=== PATIENT | female | born 1950 | race Caucasian/White ===

== ENCOUNTER 2019-05-03 06:55 | Outpatient (CLI) | payer MEDICARE, SELFPAY ==
--- NOTE | ~2019-05-03 | XR_ITS ---
EXAMINATION: XR abdomen/kub 1V DATE: 05/03/2019 07:21 INDICATION: Left ureteral stone. TECHNIQUE: A supine view of the abdomen on 2 radiographs was obtained. COMPARISON: CT abdomen and pelvis 04/08/2019 FINDINGS: There are no dilated loops of bowel. There is a left internal ureteral stent in expected po sition. A 5 mm calcification overlies left kidney upper pole. A vascular calcification overlies the s acrum on the left. There are phleboliths in the right pelvis. There is a total left hip arthroplasty in near-anatomic alignment. IMPRESSION: 1. 5 mm calcification overlying left kidney upper pole that may be a stone. 2. Left internal ureteral stent in expected position. Reviewed, dictated and finalized at location A. T TELLER
== END 2019-05-03 06:56 | disposition home or self-care (01) ==
PROVIDERS: Visit Provider Urology
DX: N20.1 Calculus of ureter (principal); N28.89 Other specified disorders of kidney and ureter
CPT/HCPCS: 74018

== ENCOUNTER 2019-05-13 13:35 | Outpatient (CLI) | payer MEDICARE, SELFPAY ==
--- NOTE | ~2019-05-13 | CT_ITS ---
EXAMINATION: CT abdomen pelvis wo con DATE: 05/13/2019 14:11 INDICATION: Left ureteral stone, left flank pain TECHNIQUE: Computed tomography (CT) of the abdomen and pelvis was performed without intravenous contr ast. The dose-length product (DLP) was 242.51 mGy-cm. Automated exposure control and iterative recons truction technique were employed. COMPARISON: 04/08/2019 FINDINGS: There is moderate emphysema of the visualized lung bases. The heart size is normal. Stable nodules of the left lower lobe measure up to 5 mm. The liver, spleen, pancreas, gallbladder, and adre nal glands are normal. The right kidney is unremarkable. A left internal ureteral stent has been plac ed in expected position. Tiny stone fragments are noted in the lower pole of the left kidney. No defi nite stone fragments are seen along the left internal ureteral stent. There is mild persistent hydrou reteronephrosis. There is no free intraperitoneal gas or evidence of bowel obstruction. No pathologic ally enlarged abdominal or pelvic lymph nodes are identified. There is calcified atherosclerosis of t he aorta and many of the other arteries. Colonic diverticulosis is present without evidence of divert iculitis. There is moderate lumbar spondylosis. IMPRESSION: 1. Interval placement of a left internal ureteral stent in expected position and lithotripsy with tin y stone fragments in the lower pole of the left kidney. No stone fragments identified along the cours e of the left internal ureteral stent. Mild persistent left hydroureteronephrosis. 2. Left lower lobe nodules measuring up to 4 mm. Consider follow-up CT in 12 months. Reviewed, dictated and finalized at location A. ARTIST IMPRESSION: 1. Interval placement of a left internal ureteral stent in expected position an d lithotripsy with tiny stone fragments in the lower pole of the left kidney. N o stone fragments identified along the course of the left internal ureteral aliya nt. Mild persistent left hydroureteronephrosis. 2. Left lower lobe nodules measuring up to 4 mm. Consider follow-up CT in 12 mo nths.
--- NOTE | ~2019-05-13 | XR_ITS ---
EXAMINATION: XR abdomen/kub 1V INDICATION: Left ureteral stone TECHNIQUE: Supine views of the abdomen were obtained on 2 radiographs. COMPARISON: 05/03/2019 FINDINGS: A left internal ureteral stent is in expected position. Tiny left kidney lower pole stone f ragments noted on today's CT are not evident. A density projecting over the distal aspect of the sten t is demonstrated to represent vascular calcification on today's CT examination. There are phlebolith s in the pelvis. Changes of total left hip arthroplasty are present. The bowel gas pattern is normal. IMPRESSION: 1. Left internal ureteral stent in expected position. No definite urinary tract calculi identified. Reviewed, dictated and finalized at location A. AL MAIL CARRIER
== END 2019-05-13 13:36 | disposition home or self-care (01) ==
PROVIDERS: Visit Provider Urology
DX: N20.1 Calculus of ureter (principal); Z96.0 Presence of urogenital implants; R91.8 Other nonspecific abnormal finding of lung field; N13.30 Unspecified hydronephrosis
CPT/HCPCS: 74018; 74176

== ENCOUNTER 2019-06-15 10:44 | Outpatient (CLI) | payer MEDICARE, SELFPAY ==
--- NOTE | ~2019-06-15 | XR_ITS ---
EXAMINATION: XR abdomen/kub 1V INDICATION: Left ureteral stone TECHNIQUE: Supine view of the abdomen is obtained COMPARISON: 05/13/2019 FINDINGS: The left internal ureteral stent has been removed. No definite urinary tract calculi are id entified. There are phleboliths of the pelvis. A bone island is noted in the left sacrum. There are c hanges of left total hip arthroplasty. There are no dilated loops of bowel. IMPRESSION: 1. Left internal ureteral stent removed. No definite urinary tract calculi identified. Reviewed, dictated and finalized at location A. IMPRESSION: 1. Left internal ureteral stent removed. No definite urinary tract calculi iden tified.
== END 2019-06-15 10:45 | disposition home or self-care (01) ==
LOC: ANHIMG 10:47
PROVIDERS: PCP Family Medicine; Visit Provider Urology
DX: N20.1 Calculus of ureter (principal)
CPT/HCPCS: 74018

== ENCOUNTER → 2021-02-08 14:36 | Outpatient (CLI) | payer MEDICARE, SELFPAY ==
--- NOTE | ~2021-02-08 | MMUS_ITS ---
EXAMINATION: MM diagnostic kevin BI w carrillo, US breast BI limited HISTORY: Right breast pain TECHNIQUE: Full field and spot ML, MLO and craniocaudal 3-D tomosynthesis images of both breasts were performed and synthetic 2-D images were generated. CAD analysis was submitted and interpreted. High resolution upper outer and lower-outer quadrants bilaterally breast ultrasound was performed. COMPARISON: 04/18/2018 bilateral screening mammogram examinations BREAST PARENCHYMAL COMPOSITION: There are scattered areas of fibroglandular density. FINDINGS: MAMMOGRAPHIC FINDINGS: There is mild fibroglandular asymmetry, stable since 04/18/2018. No interval suspicious mass or new ar chitectural distortion, malignant calcification, skin thickening or retraction is detected. ULTRASOUND: Right breast: No suspicious mass or shadowing is detected Left breast: No suspicious mass or shadowing is detected. IMPRESSION: 1. No mammographic of malignancy 2. Routine annual mammographic screening is recommended BI-RADS Category 2: Benign finding(s). Reviewed, dictated and finalized at location A. ING INSPECTOR IMPRESSION: 1. No mammographic of malignancy 2. Routine annual mammographic screening is recommended BI-RADS Category 2: Benign finding(s).
== END ==
PROVIDERS: PCP Family Medicine; Visit Provider Family Medicine
DX: N64.4 Mastodynia (principal)
CPT/HCPCS: 76642; 77062; 77066; G0279

== ENCOUNTER 2021-02-18 14:05 | Emergency (ER) | payer MEDICARE, SELFPAY ==
[2021-02-18 14:16] VITALS: BP 142/72; PULSE 104; RESP 20; TEMP 36.9; O2SAT 96
--- NOTE | 2021-02-18 14:24 | ED.URI ---
HPI - URI/Sore Throat General Chief Complaint: Upper Respiratory Infection Stated Complaint: Cough,Fever,Sinus Time Seen by Provider: 02/18/21 14:31 Source: patient and RN notes reviewed Mode of arrival: ambulatory Limitations: no limitations History of Present Illness HPI Narrative: 70-year-old female with history of diabetes presents with concern for 1 week history of cough, fever, sinus congestion. Reports she is taking what she can [id number] with no relief. Reports she is been vaccinated for flu and Covid. Denies known sick contacts. She denies shortness of breath, nausea, vomiting, diarrhea MD elicited complaint: cough and nasal congestion Related Data Home Medications Medication Instructions Recorded Confirmed Complete Multivitamin 1 tablet PO DAILY 04/08/19 04/23/19 aspirin 325 mg PO DAILY 04/08/19 04/23/19 calcium carbonate [Calcium 600] 600 mg PO DAILY 04/08/19 04/23/19 cholecalciferol (vitamin D3) 2,000 unit PO DAILY 04/08/19 04/23/19 [Vitamin D3] glipizide 5 mg PO DAILY 04/08/19 04/23/19 lisinopril 5 mg PO DAILY 04/08/19 04/23/19 metformin 1,000 mg PO BID 04/08/19 04/23/19 omega 9-srk-qiv-fish oil [Fish Oil] 1 cap PO DAILY 04/08/19 04/23/19 omeprazole 20 mg PO DAILY 04/08/19 04/23/19 rosuvastatin 20 mg PO DAILY 04/08/19 04/23/19 Allergies Allergy/AdvReac Type Severity Reaction Status Date / Time Penicillins Allergy Severe Hives Verified 02/18/21 14:20 Influenza Virus Vaccines Allergy Intermediate Swelling Verified 02/18/21 14:20 Sulfa (Sulfonamide Allergy Intermediate Hives Verified 02/18/21 14:20 Antibiotics) Review of Systems Review of Systems: CONSTITUTIONAL: Denies malaise, chills, sweats, or fever. EYES: Denies visual changes, redness, or discharge. ENT: Reports rhinorrhea, congestion, sinus pain. Denies otalgia and sore throat. CARDIOVASCULAR: Denies chest pain, palpitations, or edema. RESPIRATORY: Reports cough. Denies dyspnea. GASTROINTESTINAL: Denies abdominal pain, nausea, vomiting, diarrhea SKIN: Denies rash or itching. MUSCULOSKELETAL: Denies myalgia. NEUROLOGIC: Denies headache. All systems reviewed & are unremarkable except as noted in HPI and below PMFSH Past Medical History Medical History (Updated 02/18/21 @ 14:53 by Fransisca Puente NP) DMII (diabetes mellitus, type 2) GERD (gastroesophageal reflux disease) HLD (hyperlipidemia) HTN (hypertension) Vitamin D deficiency Family History Family History Mother History of blood clots Father Cerebrovascular accident Father Hypertension Other Diabetes mellitus Grandparent Congestive heart failure Sibling Chronic obstructive pulmonary disease Cardiomyopathy Lung cancer Sibling Congestive heart failure Social History Social History Smoking packs per day: 2.5 Smoking cigarettes per day: 50.0 Years smoked: 34 Smoking pack-years: 85.00 Smoking status: Former smoker Tobacco type: cigarettes Second hand tobacco smoke exposure: No Smoking end date: 01/29/02 Alcohol intake: former Drinks per week: 0 (recovering alcoholic) Substance use: never Gender identity (if verbalized by the patient): Female Spiritual care concerns: No Agree to blood products: Yes Comments At time of signature, agree with nursing past medical, surgical, social and family history. There is no relevant family history pertinent to the presenting complaint Exam Narrative: GENERAL: Well-appearing, well-nourished, and in no acute distress. HEAD: Normocephalic EYES: PERRLA, conjunctivae clear ENT: Nares clear, green discharge. Mucous membranes moist. TM pearly godfrey with dull light reflex bilaterally; no tragal tenderness. Oropharynx not erythematous without lesions. Tonsils not enlarged and without exudate, no drooling, no hoarseness, no trismus, uvula midline. NECK: Supple. No lymphadenopathy CHEST: Clear
== END 2021-02-18 15:05 | disposition home or self-care (01) ==
PROVIDERS: Emergency Provider Nurse Practitioner; PCP Family Medicine
DX: J40 Bronchitis, not specified as acute or chronic (principal); Z20.822 Contact with and (suspected) exposure to COVID-19; Z79.82 Long term (current) use of aspirin; E11.9 Type 2 diabetes mellitus without complications; K21.9 Gastro-esophageal reflux disease without esophagitis; E78.5 Hyperlipidemia, unspecified; I10 Essential (primary) hypertension; E55.9 Vitamin D deficiency, unspecified; Z87.891 Personal history of nicotine dependence
CPT/HCPCS: 87426; 87804; 99213; C9803; G0463

== ENCOUNTER 2021-10-15 14:31 | Outpatient (CLI) | payer MEDICARE, SELFPAY ==
--- NOTE | ~2021-10-15 | CT_ITS ---
EXAMINATION: CT abdomen pelvis wo con DATE: 10/15/2021 14:55 INDICATION: ABDOMINAL PAIN TECHNIQUE: Computed tomography (CT) of the abdomen and pelvis was performed without intravenous contr ast. Automated exposure control and iterative reconstruction technique were employed. The dose-length product was 475.68 mGy-cm. COMPARISON: 05/13/2019. FINDINGS: Lower thorax: Stable pulmonary nodules. Senescent and emphysematous change. Coronary artery calcifica tion. Liver: Normal. Biliary/Gallbladder: Gallbladder is normal. No bile duct dilation. Pancreas: No mass or duct dilation. Spleen: Normal. Adrenals:No mass. Kidneys: No mass, stone, or hydronephrosis. GI tract: No small or large bowel dilation. Appendix not visualized. Diverticulosis without diverticu litis. Mesentery/Peritoneum: No ascites, mass, or free air. Retroperitoneum: No mass. Atherosclerotic abdominal aortic and/or arterial calcifications. Pelvis: Uterus not visualized. Pelvis obscured by beam hardening artifact. Soft Tissues: Soft tissues and body wall unremarkable. Bones: Incompletely visualized but otherwise uncomplicated appearing left hip arthroplasty. No acute osseous finding. IMPRESSION: No acute abdominopelvic process. No CT finding to explain abdominal pain. Reviewed, dictated and finalized at location K.
== END 2021-10-15 14:32 | disposition home or self-care (01) ==
PROVIDERS: PCP Family Medicine; Visit Provider Family Medicine
DX: R10.9 Unspecified abdominal pain (principal)
CPT/HCPCS: 74176

== ENCOUNTER 2021-12-03 09:07 | Emergency (ER) | payer MEDICARE, SELFPAY ==
--- NOTE | 2021-12-03 09:11 | ED.URI ---
HPI - URI/Sore Throat General Chief Complaint: Upper Respiratory Infection Stated Complaint: congestion,cough Time Seen by Provider: 12/03/21 09:11 Source: patient Mode of arrival: ambulatory Limitations: no limitations History of Present Illness HPI Narrative: Ms. Park is a 71-year-old female patient presenting to the clinic today with complaints of cough and congestion times 4 days. She reports getting a stuffy nose starting on Friday. She is able to blow her nose but also feels very congested with a scratchy throat from postnasal drip. Her cough is productive bringing up yellow/godfrey sputum. She states she has had a fever of 100.5 ?F. She has tried tyxv-seg-ojlrekq antihistamines with some relief. She denies any close sick contacts. She is a former smoker, quit in 2000. She is vaccinated against COVID and boosted x2. She denies chest pain, shortness of breath, nausea, vomiting, rash, urinary frequency/urgency, dysuria. MD elicited complaint: cough and nasal congestion Related Data Home Medications Medication Instructions Recorded Confirmed aspirin 325 mg tablet,delayed 325 mg PO DAILY 04/08/19 02/18/21 release calcium carbonate 600 mg calcium 600 mg PO DAILY 04/08/19 02/18/21 (1,500 mg) tablet (Calcium) cholecalciferol (vitamin D3) 50 2,000 unit PO DAILY 04/08/19 02/18/21 mcg (2,000 unit) tablet (Vitamin D3) lisinopril 5 mg tablet 5 mg PO DAILY 04/08/19 02/18/21 metformin 1,000 mg tablet 1,000 mg PO BID 04/08/19 02/18/21 multivitamin,bc-usnx-uadpqzai 1 tablet PO DAILY 04/08/19 02/18/21 (Complete Multivitamin tablet) omega 4-ymg-mvk-fish oil 1,000 mg 1 cap PO DAILY 04/08/19 02/18/21 (120 mg-180 mg) capsule (Fish Oil) omeprazole 20 mg tablet,delayed 20 mg PO DAILY 04/08/19 02/18/21 release rosuvastatin 20 mg tablet 20 mg PO DAILY 04/08/19 02/18/21 insulin glargine 100 unit/mL (3 100 unit subcut DAILY 12/03/21 12/03/21 mL) subcutaneous pen (Lantus Solostar U-100 Insulin) pen needle, diabetic 32 gauge x 12/03/21 12/03/21 5/32 (BD Hina 2nd Gen Pen Needle) sitagliptin 100 mg tablet (Januvia) 100 mg PO DAILY 12/03/21 12/03/21 Allergies Allergy/AdvReac Type Severity Reaction Status Date / Time Influenza Virus Vaccines AdvReac Intermediate Swelling Verified 12/03/21 09:12 Penicillins AdvReac Mild Hives Verified 12/03/21 09:12 Sulfa (Sulfonamide AdvReac Mild Hives Verified 12/03/21 09:12 Antibiotics) Review of Systems Review of Systems: Pertinent positives per HPI. Patient denies any rash, headache, visual changes, dizziness, shortness of breath, chest pain, palpitations, nausea, vomiting, diarrhea, constipation, abdominal pain, or any urinary issues. [facility] Past Medical History Medical History (Updated 12/03/21 @ 09:45 by Kobe Calvert APRN) DMII (diabetes mellitus, type 2) GERD (gastroesophageal reflux disease) HLD (hyperlipidemia) HTN (hypertension) Vitamin D deficiency Family History Family History Mother History of blood clots Father Cerebrovascular accident Father Hypertension Other Diabetes mellitus Grandparent Congestive heart failure Sibling Chronic obstructive pulmonary disease Cardiomyopathy Lung cancer Sibling Congestive heart failure Social History Social History Smoking packs per day: 2.5 Smoking cigarettes per day: 50.0 Years smoked: 34 Smoking pack-years: 85.00 Smoking status: Former smoker Tobacco type: cigarettes Second hand tobacco smoke exposure: No Smoking end date: 01/29/02 Alcohol intake: former Drinks per week: 0 (recovering alcoholic) Substance use: never Gender identity (if verbalized by the patient): Female Spiritual care concerns: No Agree to blood products: Yes Comments At the time of my signature, I reviewed and agree with the nursing past medical, surgical, social, an
[2021-12-03 09:21] VITALS: BP 135/99; PULSE 107; RESP 18; TEMP 36.2; O2SAT 96
== END 2021-12-03 09:46 | disposition home or self-care (01) ==
PROVIDERS: Emergency Provider Nurse Practitioner Family; PCP Family Medicine
DX: U07.1 COVID-19 (principal); Z87.891 Personal history of nicotine dependence; E11.9 Type 2 diabetes mellitus without complications; K21.9 Gastro-esophageal reflux disease without esophagitis; E78.5 Hyperlipidemia, unspecified; I10 Essential (primary) hypertension; E55.9 Vitamin D deficiency, unspecified; Z79.82 Long term (current) use of aspirin
CPT/HCPCS: 87426; 99213; C9803; G0463

== ENCOUNTER → 2022-05-23 11:05 | Outpatient (CLI) | payer MEDICARE, SELFPAY ==
--- NOTE | ~2022-05-23 | XR_ITS ---
Right wrist Technique: PA, oblique, lateral, and ulnar deviation views were obtained. Clinical History: Pain Findings: No acute fracture or dislocation is seen. Osseous alignment is anatomic. Joint spaces are p reserved. Soft tissues are unremarkable. Impression: Unremarkable right wrist radiographs. Reviewed, dictated and finalized at location . T METAL WORKER Impression: Unremarkable right wrist radiographs.
== END ==
PROVIDERS: PCP Family Medicine; Visit Provider Family Medicine
DX: M25.531 Pain in right wrist (principal)
CPT/HCPCS: 73110

== ENCOUNTER 2023-09-29 08:08 | Outpatient (CLI) | payer MEDICARE, SELFPAY ==
[2023-09-29 19:39] LABS: Basophils Absolute Auto 0.1 K/mm3 (0.0-0.1); Basophils Percent Auto 0.6 % (0.2-1.2); Eosinophils Absolute Auto 0.5 K/mm3 (0-0.3); Eosinophils Percent Auto 6.4 % (0-4.4); Hematocrit 45.4 % (37.0-47.0); Hemoglobin 13.9 g/dL (12.0-15.0); Immature Granulocyte Absolute 0.03 K/mm3 (0.00-0.031); Immature Granulocyte Percent A 0.4 % (0-0.5); Lymphocytes Absolute Auto 3.09 K/mm3 (0.9-3.2); Lymphocytes Percent Auto 36.4 % (18.3-44.2); Mean Corpuscular HGB Conc 30.6 g/dl (32-36); Mean Corpuscular Volume 88.2 fl (80-100); Mean Platelet Volume 12.2 fl (7.4-10.4); Monocytes Absolute Auto 0.6 K/mm3 (0.1-0.6); Monocytes Percent Auto 7.3 % (2.6-8.5); Neutrophils Absolute Auto 4.2 K/mm3 (1.3-6.7); Neutrophils Percent Auto 48.9 % (45.5-73.1); Platelet Count Result 200 k/mm3 (150-375); Red Blood Count 5.15 M/mm3 (4.2-5.4); Red Cell Distribution Width 14.3 % (11.5-14.5); White Blood Count 8.5 K/mm3 (4.5-10.0)
[2023-09-29 19:59] LABS: Creatinine Urine 52.6 mg/dL
[2023-09-29 20:08] LABS: MALB Creatinine Ratio < 11.4 mg/g (0-30); Microalbumin Urine Random < 6.0 mg/L (0-16.7)
[2023-09-29 20:10] LABS: Vitamin D 25 Hydroxy 71.2 ng/mL
[2023-09-29 20:16] LABS: Alanine Aminotransferase 24 U/L (6-35); Alkaline Phosphatase 71 U/L (38-126); Anion Gap 11 mmol/L (4-12); Aspartate Amino Transferase 27 U/L (14-36); Bilirubin,Total 0.5 mg/dL (0.2-1.3); Blood Urea Nitrogen 13 mg/dL (7-17); Carbon Dioxide 27 mmol/L (22-30); Chloride 104 mmol/L (98-107); Estimated Glomerular Filt Rate > 60; Glucose 168 mg/dL (65-110); Potassium 4.6 mmol/L (3.4-5.0); Sodium 142 mmol/L (137-145)
[2023-09-29 21:01] LABS: Hemoglobin A1C 8.2 % (<5.7)
[2023-09-29 21:04] LABS: Vitamin B12 > 1000.0 pg/mL (239-931)
== END 2023-09-29 08:09 | disposition home or self-care (01) ==
LOC: ANHGOSHLAB 08:09
PROVIDERS: PCP Internal Medicine; Visit Provider Clinical Nurse Specialist
DX: E55.9 Vitamin D deficiency, unspecified (principal); E11.69 Type 2 diabetes mellitus with other specified complication; E78.2 Mixed hyperlipidemia; I10 Essential (primary) hypertension; Z79.4 Long term (current) use of insulin
CPT/HCPCS: 36415; 80053; 82043; 82306; 82607; 83036; 84443; 85025

== ENCOUNTER 2024-01-01 07:55 | Outpatient (CLI) | payer MEDICARE, SELFPAY ==
[2024-01-01 19:05] LABS: Chloride 104 mmol/L (98-107); Potassium 4.3 mmol/L (3.4-5.0); Sodium 139 mmol/L (137-145)
[2024-01-01 19:06] LABS: Anion Gap 10 mmol/L (4-12); Blood Urea Nitrogen 15 mg/dL (7-17); Calcium 9.4 mg/dL (8.4-10.2); Carbon Dioxide 25 mmol/L (22-30); Cholesterol 145 mg/dL (0-200); Estimated Glomerular Filt Rate > 60; Glucose 159 mg/dL (65-110); HDL Direct 47 mg/dL; Triglycerides 119 mg/dL (<150)
[2024-01-01 19:16] LABS: LDL Cholesterol Direct 64 mg/dL
== END 2024-01-01 07:56 | disposition home or self-care (01) ==
LOC: ANHGOSHLAB 07:57
PROVIDERS: PCP Internal Medicine; Visit Provider Clinical Nurse Specialist
DX: E11.69 Type 2 diabetes mellitus with other specified complication (principal); I10 Essential (primary) hypertension; Z79.4 Long term (current) use of insulin
CPT/HCPCS: 36415; 80048; 80061; 83036

== ENCOUNTER 2024-04-19 11:19 | Outpatient (CLI) | payer MEDICARE, SELFPAY ==
[2024-04-19 13:54] LABS: Creatinine Urine 40.4 mg/dL
[2024-04-19 13:55] LABS: Anion Gap 11 mmol/L (4-12); Blood Urea Nitrogen 16 mg/dL (7-17); Calcium 10.1 mg/dL (8.4-10.2); Carbon Dioxide 26 mmol/L (22-30); Chloride 103 mmol/L (98-107); Estimated Glomerular Filt Rate > 60; Glucose 185 mg/dL (65-110); Potassium 4.5 mmol/L (3.4-5.0); Sodium 140 mmol/L (137-145)
[2024-04-19 14:03] LABS: MALB Creatinine Ratio < 14.9 mg/g (0-30); Microalbumin Urine Random < 6.0 mg/L (0-16.7)
[2024-04-19 14:14] LABS: Hemoglobin A1C 8.5 % (<5.7)
[2024-04-20 21:43] LABS: Vitamin B12 > 1000.0 pg/mL (239-931)
== END 2024-04-19 11:20 | disposition home or self-care (01) ==
LOC: ANHGOSHLAB 11:21
PROVIDERS: PCP Internal Medicine; Visit Provider Clinical Nurse Specialist
DX: E11.69 Type 2 diabetes mellitus with other specified complication (principal); I10 Essential (primary) hypertension; Z79.4 Long term (current) use of insulin
CPT/HCPCS: 36415; 80048; 82043; 82607; 83036

== ENCOUNTER 2024-06-22 13:30 | Outpatient (RCR) | payer MEDICARE, SELFPAY ==
[2024-05-25 13:19] VITALS: BMI 28.3
[2024-05-25 13:25] VITALS: BMI 28.3
[2024-06-22 13:25] VITALS: BMI 28.3
== END 2024-08-09 09:30 | disposition home or self-care (01) ==
LOC: ANHDMC 13:30
PROVIDERS: PCP Internal Medicine; Visit Provider Internal Medicine
DX: E11.65 Type 2 diabetes mellitus with hyperglycemia (principal); E11.69 Type 2 diabetes mellitus with other specified complication; Z71.3 Dietary counseling and surveillance; Z79.4 Long term (current) use of insulin
CPT/HCPCS: 97802; 97803

== ENCOUNTER 2024-07-26 12:34 | Outpatient (CLI) | payer MEDICARE, SELFPAY ==
--- OUTSIDE RECORDS SUMMARY | 2024-07-26 14:09 | XMS_ITS | Continuity of Care Document ---
Author Organization Merged with [facility] Address [address] [place] [address] Phone Care Team Providers Care Ledger Poster Name Role Phone Lewis OD, Richard Unavailable Unavailable Procedures Procedure Date Optic Nerve Topography Optic Nerve Topography BF Plastic Sphcyl [place] To +/-4d .12-2d Frames Deluxe Tint Photochromatic, Plastic Anti-reflective Coating Tax - Medical Office/outpatient Visit, Est Corneal Pachymetry Fundus Photography W/ Report Visual Field Examination(s) Eye Exam, New Patient Advance Directives Directive Yes / No Effective Date File Name No Information Encounters Encounter Description Practice Location Reason(s) For Visit Diagnoses Date Provider Providers Copied on Encounter [facility], [address] [place] [address] [address], [place], [place], [id number], tel:[phone] [facility] No Information 2-200 8 Lewis OD Richard. [facility] , [address], [place], [address], [place]. tel:[phone] Referring Provider: Richard Lewis OD El[facility] [employer] [address], [place], [address]. tel:[phone] [facility], [id number] [place] [address] [address], [place], [place], [id number], tel:[phone] [facility] No Information Mar-0 6-200 8 [facility] . [address], [address], [place], [place], [address], [place]. tel:[phone] Referring Provider: Richard Lewis OD Piyush, [address], [place], [address]. tel:[phone] g Provider: Nani Schroeder, [address], [place], [address]. tel:[phone] Office/outpat ient Visit, [facility], [address], [place], [place], [address], [place] tel:[phone] [facility] No Information May-0 6-200 8 Lewis OD Richard. [address], [address], [place], [address], [place]. tel:[phone] Referring Provider: Johnny Henry, [address], [place], [address]. tel:[phone] [facility], [address], [place], [place], [address], [place] tel:[phone] [facility] No Information 8-200 8 Jayde Dao. [address], [address], [place], [place], [id number], [place]. tel:[phone] Referring Provider: Feliberto Pickett, [address], [place], [address]. tel:[phone] [facility], [address], [place], [place], [id number], [place] tel:[phone] [facility] No Information 4-200 8 Jayde Dao. [address] [facility], [address], [place], [place], [address], [place]. tel:[phone] Referring Provider: Johnny Henry, [address], [place], [address]. tel:[phone] Family History Family Member Type Diagnosis Age At Onset No Information Payers Payer name Insurance type Covered alliance party ID Radha phelps(s) [facility] Commercial CI [id number] Social History Type Description Quantity Date Captured Comments Sex Female Smoking Status No Information Chief Complaint And Reason For Visit No Information Reason For Referral Reason For Referral No Information History Of Present Illness Encounter Date Complaint History Of Prese nt Illness No Information Functional Status Date Functional Assessmen t No Information Instructions Date Instruction Additional Infor mation No Information Assessments Type Assessment Date No Information Patient Care Teams Name Effective Dates (start - stop) Status Members No Information
--- OUTSIDE RECORDS SUMMARY | 2024-07-26 14:10 | XMS_ITS | Data Portability ---
Author Organization [place] [employer], Main Office Address [address] [place] [address] Care Team Providers Care Electrician Supervisor Substation Name Role Phone ATILIO LAUGHLIN Primary Care Provider [phone] ATILIO LAUGHLIN Referring Provider Assessment Encounter Date Assessment Date Assessment LastModified by Organization Details LastModified Time 10/11/2022 10/11/2022 HPI: Patient returns. She is here for 5 year routine x-ray surveillance of her left total hip arthroplasty. She is now 11 years out. Hip is doing well. She is having symptoms. She will occasionally have some symptoms in the right hip but this is very minimal very limited. Physical exam: 71-year-old female alert pleasant. She is walking. She has no pain with range of motion left hip. Negative Stinchfield maneuver. Impression: Patient is now 11 years out from left total hip arthroplasty. X-rays look excellent. Patient is very happy with her results. We will see her back in 5 years for routine x-ray surveillance or sooner if she has problems. [email or web address] Not available 10/11/2022 12:00:20 Plan of Treatment Reminders Order Date Submit Date Provider Last Modified By Organization Details Last Modified Time Details Appointments None recorded. Lab iron + total iron-bindin g capacity (TIBC), serum 2023 024 [email or web address] 4 Not available 4 14:56:24 ferritin, serum or plasma 2023 024 [email or web address] 4 Not available 4 14:56:44 urinalysis complete, reflex culture 2023 024 [email or web address] 4 Not available 4 14:58:39 urinalysis complete, reflex culture 2023 024 4 Not available 4 14:58:58 CBC w/ auto diff 2023 024 [email or web address] 4 Not available 4 14:55:28 lipid panel, serum 2023 024 [email or web address] 4 Not available 4 14:55:46 hepatic function panel, serum 2023 024 [email or web address] 4 Not available 4 14:56:05 vitamin D3, 25-hydroxy, serum 2023 024 [email or web address] 4 Not available 4 14:57:02 HbA1c (hemoglobin A1c), blood 2023 024 [email or web address] 4 Not available 14:57:19 BMP, serum or plasma 2023 024 [email or web address] 4 Not available 4 14:57:39 microalbumi n, urine 2023 024 [email or web address] 4 Not available 4 14:58:17 vitamin B12, serum 2023 024 [email or web address] 4 Not available 4 14:54:53 folate, serum 2023 024 [email or web address] 4 Not available 14:55:10 ferritin, serum or plasma 2022 023 [facility] (Lab), [address] [place], [address], 3 20:42:07 iron + total iron-bindin g capacity (TIBC), serum 2022 023 [facility] (Lab), [address] [place], [address], 3 20:10:24 CBC w/ auto diff 2022 023 [facility] (Lab), [address] [place], [address], 3 19:37:00 magnesium, serum or plasma 2022 023 [facility] (Lab), [address] [place], [address], 3 20:10:38 TSH, serum or plasma 2022 023 [facility] (Lab), [address] [place], [address], 3 20:41:56 lipid panel, serum 2022 023 [facility] (Lab), [address] [place], [address], 3 20:10:44 hepatic function panel, serum 2022 023 [facility] (Lab), [address] [place], [address], 3 20:10:54 vitamin D, 25-hydroxy, total, serum 2022 023 [facility] (Lab), [address] [place], [address], 3 04:45:48 glycohemogl obin, total, blood 2022 023 [facility] (Lab), [address] [place], [address], 3 20:43:01 BMP, serum or plasma 2022 023 [facility] (Lab), [address] [place], [address], 3 20:10:30 vitamin B12, serum 2022 023 [facility] (Lab), [address] [place], [address], 3 20:58:13 Referral None recorded. Procedures None recorded. Surgeries None recorded. Imaging XR, hip + pelvis, unilateral 2022 023 [email or web address] [facility], [address], [place], [address], 3 15:01:58 Medication Orders nitrofurant oin monohydrate /macrocryst als 100 [address] capsule [address] [facility] #[id number], [address] [facility], [place], [place], [id number], 4 14:18:30 triamcinolo ne acetonide 0.1 % topical cream [address] [facility] #[id number], [address] [facility], [place], [place], [id number], 3 14:07:53 Patient TargetsNo targets recorded. Patient InstructionsNo instructions recorded. Reason for Referral None Reported. Results Created Date Observation Date Name Description Value Unit Range Abnormal Flag Note LastModifiedBy Organization Detail LastModifiedTime 12/04/1912/03/2022 CBC/C OMPLE TE BLD COUNT W/DIF F white blood cells 10.1 x10'3 /uL 4.2-10 .8 Not Available [facility] (Lab) [address] [place], [address], 12/03/2022 19:37:00 12/04/1912/03/2022 CBC/C OMPLE TE BLD COUNT W/DIF F red blood cells 4.93 x10'6 /uL 3.80-5 .20 Not Available [facility] (Lab) [address] [place], [address], 12/03/2022 19:37:00 12/04/19 23 12/03/2022 CBC/C OMPLE TE BLD COUNT W/DIF F hemoglobin 13.5 g/dL 12.0-1 5.6 Not Available [facility] (Lab) [address] [place], [address], 12/03/2022 19:37:00 12/04/19 23 12/03/2022 CBC/C OMPLE TE BLD COUNT W/DIF F hematocrit 43.4 % 35.7-4 5.7 Not Available [facility] (Lab) [address] [place], [address], 12/03/2022 19:37:00 12/04/19 23 12/03/2022 CBC/C OMPLE TE BLD COUNT W/DIF F mean red cell volume 88.0 fL 82.0-9 9.0 Not Available [facility] (Lab) [address] [place], [address], 12/03/2022 19:37:00 12/04/19 23 12/03/2022 CBC/C OMPLE TE BLD COUNT W/DIF F mean red cell hemoglobin 27.4 pg 27.0-3 3.0 Not Available [facility] (Lab) [address] [place], [address], 12/03/2022 19:37:00 12/04/19 23 12/03/2022 CBC/C OMPLE TE BLD COUNT W/DIF F mean RBC HGB concentratio n 31.1 g/dL 31.0-3 6.0 Not Available [facility] (Lab) [address] [place], [address], 12/03/2022 19:37:00 12/04/19 23 12/03/2022 CBC/C OMPLE TE BLD COUNT W/DIF F red cell distribution width 14.2 % 11.8-1 5.5 Not Available [facility] (Lab) [address] [place], [address], 12/03/2022 19:37:00 12/04/1912/03/2022 CBC/C OMPLE TE BLD COUNT W/DIF F platelets 231 x10'3 /uL 150-40 0 Not Available [facility] (Lab) [address] [place], [address], 12/03/2022 19:37:00 12/04/19 23 12/03/2022 CBC/C OMPLE TE BLD COUNT W/DIF F mean platelet volume 11.9 fL 9.0-12 .4 Not Available [facility] (Lab) [address] [place], [address], 12/03/2022 19:37:00 12/04/19 23 12/03/2022 CBC/C OMPLE TE BLD COUNT W/DIF F neutrophils 52.7 % 39.0-7 2.0 Not Available [facility] (Lab) [address] [place], [address], 12/03/2022 19:37:00 12/04/1912/03/2022 CBC/C OMPLE TE BLD COUNT W/DIF F lymphocytes 33.9 % 16.0-4 7.0 Not Available [facility] (Lab) [address] [place], [address], 12/03/2022 19:37:00 12/04/1912/03/2022 CBC/C OMPLE TE BLD COUNT W/DIF F monocytes 6.5 % 5.0-12 .0 Not Available [facility] (Lab) [address] [place], [address], 12/03/2022 19:37:00 12/04/19 23 12/03/2022 CBC/C OMPLE TE BLD COUNT W/DIF F eosinophils 6.1 % 1.0-7. 0 Not Available [facility] (Lab) [address] [place], [address], 12/03/2022 19:37:00 12/04/1912/03/2022 CBC/C OMPLE TE BLD COUNT W/DIF F basophils 0.5 % 0.0-2. 0 Not Available [facility] (Lab) [address] [place], [address], 12/03/2022 19:37:00 12/04/1912/03/2022 CBC/C OMPLE TE BLD COUNT W/DIF F immature granulocytes 0.3 % 0.00-0 .50 Not Available [facility] (Lab) [address] [place], [address], 12/03/2022 19:37:00 12/04/1912/03/2022 CBC/C OMPLE TE BLD COUNT W/DIF F neutrophils, absolute count 5.32 x10'3 /uL 1.5-8. 0 Not Available [facility] (Lab) [address] [place], [address], 12/03/2022 19:37:00 12/04/1912/03/2022 CBC/C OMPLE TE BLD COUNT W/DIF F lymphocytes, absolute count 3.41 x10'3 /uL 1.07-3 .43 Not Available [facility] (Lab) [address] [place], [address], 12/03/2022 19:37:00 12/04/1912/03/2022 CBC/C OMPLE TE BLD COUNT W/DIF F monocytes, absolute count 0.65 x10'3 /uL 0.29-0 .99 Not Available [facility] (Lab) [address] [place], [address], 12/03/2022 19:37:00 12/04/19 23 12/03/2022 CBC/C OMPLE TE BLD COUNT W/DIF F eosinophils, absolute count 0.61 x10'3 /uL 0.02-0 .53 high Not Available [facility] (Lab) [address] [place], [address], 12/03/2022 19:37:00 12/04/19 23 12/03/2022 CBC/C OMPLE TE BLD COUNT W/DIF F basophils, absolute count 0.05 x10'3 /uL 0.01-0 .08 Not Available [facility] (Lab) [address] [place], [address], 12/03/2022 19:37:00 12/04/19 23 12/03/2022 CBC/C OMPLE TE BLD COUNT W/DIF F immature granulocytes ,absolute 0.03 x10'3 /uL 0.00-0 .05 Not Available [facility] (Lab) [address] [place], [address], 12/03/2022 19:37:00 12/04/19 23 12/03/2022 CBC/C OMPLE TE BLD COUNT W/DIF F nucleated red blood cells 0.0 % -0 Not Available [facility] (Lab) [address] [place], [address], 12/03/2022 19:37:00 12/04/19 23 12/03/2022 CBC/C OMPLE TE BLD COUNT W/DIF F NRBC# 0.00 x10'3 /uL Not Available [facility] (Lab) [address] [place], [address], 12/03/2022 19:37:00 12/04/19 23 12/03/2022 IRON/ TIBC PANEL total iron binding capacity 403 mcg/d L 265-47 5 Not Available [facility] (Lab) [address] [place], [address], 12/03/2022 20:24:48 12/04/19 23 12/03/2022 IRON/ TIBC PANEL % transferrin saturation 18 % 20-55 low Not Available [facility] (Lab) [address] [place], [address], 12/03/2022 20:24:48 12/04/19 23 12/03/2022 IRON/ TIBC PANEL unsaturated iron bind capacity 330 mcg/d L 126-38 2 Not Available [facility] (Lab) [address] [place], [address], 12/03/2022 20:24:48 12/04/19 23 12/03/2022 IRON/ TIBC PANEL iron 73 mcg/d L 42-175 Not Available [facility] (Lab) [address] [place], [address], 12/03/2022 20:24:48 12/04/19 23 12/03/2022 BASIC METAB OLIC PANEL sodium 136 mmol/ L 137-14 5 low Not Available [facility] (Lab) [address] [place], [address], 12/03/2022 20:10:30 12/04/19 23 12/03/2022 BASIC METAB OLIC PANEL potassium 4.6 mmol/ L 3.5-5. 1 Not Available [facility] (Lab) [address] [place], [address], 12/03/2022 20:10:30 12/04/19 23 12/03/2022 BASIC METAB OLIC PANEL chloride 100 mmol/ L 98-107 Not Available [facility] (Lab) [address] [place], [address], 12/03/2022 20:10:30 12/04/19 23 12/03/2022 BASIC METAB OLIC PANEL carbon dioxide 24 mmol/ L 22-30 Not Available [facility] (Lab) [address] [place], [address], 12/03/2022 20:10:30 12/04/19 23 12/03/2022 BASIC METAB OLIC PANEL anion gap 16.6 mmol/ L 14-22 Not Available [facility] (Lab) [address] [place], [address], 12/03/2022 20:10:30 12/04/19 23 12/03/2022 BASIC METAB OLIC PANEL glucose 151 mg/dL 70-99 high Not Available [facility] (Lab) [address] [place], [address], 12/03/2022 20:10:30 12/04/19 23 12/03/2022 BASIC METAB OLIC PANEL BUN 16 mg/dL 8-19 Not Available [facility] (Lab) [address] [place], [address], 12/03/2022 20:10:30 12/04/19 23 12/03/2022 BASIC METAB OLIC PANEL creatinine 0.69 mg/dL 0.66-1 .25 Not Available [facility] (Lab) [address] [place], [address], 12/03/2022 20:10:30 12/04/1912/03/2022 BASIC METAB OLIC PANEL GFR >60 Refer ence Range : [place] ge GFR Healt hy Adult : >60 mL/mi n/1.7 3 m2 Chron ic Kidne y Disea se: 15-60 mL/mi n/1.7 3 m2 Kidne y Failu re: <15/m L/min /1.73 m2 www.n iddk. nih.g ov The MDRD study equat ion has not been valid ated in child shannan <18 years of age; pregn ant women ; the elder ly >85 years of age; or in some racia l or ethni c subgr oups, such as Hispa nics. Outsi de the valid ated chele eters , estim ated GFR is less accur ate, requi ring clini andre judgm ent on a case- by-ca se basis . Clini andre inter preta tion for other races and ages must be made by the clini jacoby. The MDRD study equat ion has not been valid ated for the evalu ation of serum creat inine relat ed to nutri miranda l statu s or medic ation usage . For joeyo ns <18 years of age, a pedia tric GFR calcu lator is avail able on the [facility] websi te: https ://kaci w.erasmo vasyl.o rg/pr ofess ional s/kdo qi/gf r_cal culat or Not Available [facility] (Lab) [address] [place], [address], 12/03/2022 20:10:30 12/04/19 23 12/03/2022 BASIC METAB OLIC PANEL calcium 10.3 mg/dL 8.4-10 .2 high Not Available [facility] (Lab) [address] [place], [address], 12/03/2022 20:10:30 12/04/19 23 12/03/2022 MAGNE SIUM magnesium 1.9 mg/dL 1.6-2. 3 Not Available [facility] (Lab) [address] [place], [address], 12/03/2022 20:10:38 12/04/19 23 12/03/2022 LIPID PANEL cholesterol 144 mg/dL 140-19 9 NIH RAMA NSUS RECOM MENDA TION FOR ANITHA STERO L: ADULT CHILD LOW RISK: <200 <170 BORDE RLINE : <200- 239 ----- HIGH RISK: >240 >200 Not Available [facility] (Lab) [address] [place], [address], 12/03/2022 20:10:44 12/04/19 23 12/03/2022 LIPID PANEL triglyceride s 209 mg/dL 0-150 high NIH RAMA NSUS REPOR T RECOM MENDA TION FOR TRIGL YCERI JACKSON: ADULT CHILD LOW RISK: <150 ----- BODER LINE: 150-1 99 ----- HIGH RISK: >200 ----- Not Available [facility] (Lab) [address] [place] [address], [address], 12/03/2022 20:10:44 12/04/19 23 12/03/2022 LIPID PANEL HDL cholesterol 46 mg/dL 40- Not Available [facility] (Lab) [address] [place], [address], 12/03/2022 20:10:44 12/04/19 23 12/03/2022 LIPID PANEL LDL cholesterol, calculated 56 mg/dL 0-130 NIH RAMA NSUS REPOR T RECOM MENDA TIONS FOR LDL: ADULT CHILD LOW RISK <130 <110 (OPTI MAL LDL) <100 ----- BORDE RLINE : 130-1 59 ----- HIGH RISK: >160 >130 A TRIGL YCERI DE RESUL T >400 INVAL IDATE S THE CALCU LATIO N FOR LDL FRACT IONAT ION - THE LDL RESUL T WILL NOT BE REPOR HA. Not Available [facility] (Lab) [address] [place], [address], 12/03/2022 20:10:44 12/04/19 23 12/03/2022 HEPAT IC/LI SONIA PANEL alkaline phosphatase 74 U/L 38-126 Not Available [facility] (Lab) [address] [place], [address], 12/03/2022 20:10:54 12/04/19 23 12/03/2022 HEPAT IC/LI SONIA PANEL alanine aminotransfe rase 24 U/L 0-35 Not Available [facility] (Lab) [address] [place], [address], 12/03/2022 20:10:54 12/04/19 23 12/03/2022 HEPAT IC/LI SONIA PANEL aspartate aminotransfe rase 26 U/L 15-37 Not Available [facility] (Lab) [address] [place], [address], 12/03/2022 20:10:54 12/04/19 23 12/03/2022 HEPAT IC/LI SONIA PANEL bilirubin, total 0.40 mg/dL 0.20-1 .30 Not Available [facility] (Lab) [address] [place], [address], 12/03/2022 20:10:54 12/04/19 23 12/03/2022 HEPAT IC/LI SONIA PANEL bilirubin, conjugated (direct) 0.00 mg/dL 0.00-0 .30 Not Available [facility] (Lab) [address] [place], [address], 12/03/2022 20:10:54 12/04/19 23 12/03/2022 HEPAT IC/LI SONIA PANEL biliurubin,u ncong. (indirect) 0.20 mg/dL 0.00-1 .1 Not Available [facility] (Lab) [address] [place], [address], 12/03/2022 20:10:54 12/04/19 23 12/03/2022 HEPAT IC/LI SONIA PANEL total protein 7.4 g/dL 6.3-8. 2 Not Available [facility] (Lab) [address] [place], [address], 12/03/2022 20:10:54 12/04/19 23 12/03/2022 HEPAT IC/LI SONIA PANEL albumin 4.7 g/dL 3.0-4. 4 high Not Available [facility] (Lab) [address] [place], [address], 12/03/2022 20:10:54 12/04/19 23 12/03/2022 HEPAT IC/LI SONIA PANEL globulin 2.7 g/dL 2.6-4. 2 Not Available [facility] (Lab) [address] [place], [address], 12/03/2022 20:10:54 12/04/19 23 12/03/2022 HEPAT IC/LI SONIA PANEL A/G ratio 1.7 ratio 1.0-2. 0 Not Available [facility] (Lab) [address] [place], [address], 12/03/2022 20:10:54 12/04/19 23 12/03/2022 VITAM IN D 25-HY DROXY [id number] 52.0 NG/mL 30-100 Vitam in D Statu s: Defic ient: <20 ng/mL Insuf ficie nt: 20-29 ng/mL Suffi cient : 30-10 0 ng/mL Not Available [facility] (Lab) [address] [place], [address], 12/03/2022 20:24:37 12/04/19 23 12/03/2022 TSH thyroid-stim ulating hormone 0.823 uIU/m L 0.465- 4.680 Not Available [facility] (Lab) [address] [place], [address], 12/03/2022 20:41:56 12/04/19 23 12/03/2022 ROHAN TIN ferritin 26 NG/mL 11.1-2 64 Not Available [facility] (Lab) [address] [place], [address], 12/03/2022 20:42:07 12/04/19 23 12/03/2022 HEMOG LOBIN A1C HA1C 8.9 % 4.0-6. 0 high Diabe vale Scree kee Crite dmitry: <5.7% Consi stent with absen ce of diabe vale 5.7-6 .4% Consi stent with incre ased risk for diabe vale (pred iabet es) >OR=6 .5% Consi stent with diabe vale REFER ENCE: Diabe vale Care 2016, 39(Guadalupe ppl.1 ):s13 -s22 Not Available [facility] (Lab) [address] [place], [address], 12/03/2022 20:43:01 12/04/19 23 12/03/2022 VITAM IN B12 (VALE NELSON ) vb12 956 pg/mL 239-93 1 high Not Available [facility] (Lab) [address] [place], [address], 12/03/2022 20:58:13 06/02/19 24 06/02/2023 CBC/C OMPLE TE BLD COUNT W/DIF F white blood cells 8.9 x10'3 /uL 4.2-10 .8 Not Available [facility] (Lab) [address] [place], [address], 06/02/2023 19:25:00 06/02/19 24 06/02/2023 CBC/C OMPLE TE BLD COUNT W/DIF F red blood cells 5.14 x10'6 /uL 3.80-5 .20 Not Available [facility] (Lab) [address] [place], [address], 06/02/2023 19:25:00 06/02/19 24 06/02/2023 CBC/C OMPLE TE BLD COUNT W/DIF F hemoglobin 14.0 g/dL 12.0-1 5.6 Not Available [facility] (Lab) [address] [place], [address], 06/02/2023 19:25:00 06/02/19 24 06/02/2023 CBC/C OMPLE TE BLD COUNT W/DIF F hematocrit 44.2 % 35.7-4 5.7 Not Available [facility] (Lab) [address] [place], [address], 06/02/2023 19:25:00 06/02/19 24 06/02/2023 CBC/C OMPLE TE BLD COUNT W/DIF F mean red cell volume 86.0 fL 82.0-9 9.0 Not Available [facility] (Lab) [address] [place], [address], 06/02/2023 19:25:00 06/02/19 24 06/02/2023 CBC/C OMPLE TE BLD COUNT W/DIF F mean red cell hemoglobin 27.2 pg 27.0-3 3.0 Not Available [facility] (Lab) [address] [place], [address], 06/02/2023 19:25:00 06/02/19 24 06/02/2023 CBC/C OMPLE TE BLD COUNT W/DIF F mean RBC HGB concentratio n 31.7 g/dL 31.0-3 6.0 Not Available [facility] (Lab) [address] [place], [address], 06/02/2023 19:25:00 06/02/19 24 06/02/2023 CBC/C OMPLE TE BLD COUNT W/DIF F red cell distribution width 14.1 % 11.8-1 5.5 Not Available [facility] (Lab) [address] [place], [address], 06/02/2023 19:25:00 06/02/19 24 06/02/2023 CBC/C OMPLE TE BLD COUNT W/DIF F platelets 215 x10'3 /uL 150-40 0 Not Available [facility] (Lab) [address] [place], [address], 06/02/2023 19:25:00 06/02/19 24 06/02/2023 CBC/C OMPLE TE BLD COUNT W/DIF F mean platelet volume 11.8 fL 9.0-12 .4 Not Available [facility] (Lab) [address] [place], [address], 06/02/2023 19:25:00 06/02/19 24 06/02/2023 CBC/C OMPLE TE BLD COUNT W/DIF F neutrophils 53.1 % 39.0-7 2.0 Not Available [facility] (Lab) [address] [place], [address], 06/02/2023 19:25:00 06/02/19 24 06/02/2023 CBC/C OMPLE TE BLD COUNT W/DIF F lymphocytes 33.2 % 16.0-4 7.0 Not Available [facility] (Lab) [address] [place], [address], 06/02/2023 19:25:00 06/02/19 24 06/02/2023 CBC/C OMPLE TE BLD COUNT W/DIF F monocytes 6.8 % 5.0-12 .0 Not Available [facility] (Lab) [address] [place], [address], 06/02/2023 19:25:00 06/02/19 24 06/02/2023 CBC/C OMPLE TE BLD COUNT W/DIF F eosinophils 6.1 % 1.0-7. 0 Not Available [facility] (Lab) [address] [place], [address], 06/02/2023 19:25:00 06/02/19 24 06/02/2023 CBC/C OMPLE TE BLD COUNT W/DIF F basophils 0.6 % 0.0-2. 0 Not Available [facility] (Lab) [address] [place], [address], 06/02/2023 19:25:00 06/02/19 24 06/02/2023 CBC/C OMPLE TE BLD COUNT W/DIF F immature granulocytes 0.2 % 0.00-0 .50 Not Available [facility] (Lab) [address] [place], [address], 06/02/2023 19:25:00 06/02/19 24 06/02/2023 CBC/C OMPLE TE BLD COUNT W/DIF F neutrophils, absolute count 4.74 x10'3 /uL 1.5-8. 0 Not Available [facility] (Lab) [address] [place], [address], 06/02/2023 19:25:00 06/02/19 24 06/02/2023 CBC/C OMPLE TE BLD COUNT W/DIF F lymphocytes, absolute count 2.96 x10'3 /uL 1.07-3 .43 Not Available [facility] (Lab) [address] [place], [address], 06/02/2023 19:25:00 06/02/19 24 06/02/2023 CBC/C OMPLE TE BLD COUNT W/DIF F monocytes, absolute count 0.61 x10'3 /uL 0.29-0 .99 Not Available [facility] (Lab) [address] [place], [address], 06/02/2023 19:25:00 06/02/19 24 06/02/2023 CBC/C OMPLE TE BLD COUNT W/DIF F eosinophils, absolute count 0.54 x10'3 /uL 0.02-0 .53 high Not Available [facility] (Lab) [address] [place], [address], 06/02/2023 19:25:00 06/02/19 24 06/02/2023 CBC/C OMPLE TE BLD COUNT W/DIF F basophils, absolute count 0.05 x10'3 /uL 0.01-0 .08 Not Available [facility] (Lab) [address] [place], [address], 06/02/2023 19:25:00 06/02/19 24 06/02/2023 CBC/C OMPLE TE BLD COUNT W/DIF F immature granulocytes ,absolute 0.02 x10'3 /uL 0.00-0 .05 Not Available [facility] (Lab) [address] [place], [address], 06/02/2023 19:25:00 06/02/19 24 06/02/2023 CBC/C OMPLE TE BLD COUNT W/DIF F nucleated red blood cells 0.0 % -0 Not Available [facility] (Lab) [address] [place], [address], 06/02/2023 19:25:00 06/02/19 24 06/02/2023 CBC/C OMPLE TE BLD COUNT W/DIF F NRBC# 0.00 x10'3 /uL Not Available [facility] (Lab) [address] [place], [address], 06/02/2023 19:25:00 06/02/19 24 06/02/2023 URINA LYSIS COMPL ETE/I RIS W/RFX color LIGHT- YELLOW Not Available Not Available 19:52:50 06/02/19 24 06/02/2023 URINA LYSIS COMPL ETE/I RIS W/RFX appear CLEAR Not Available Not Availa ble 06/02/2023 19:52:50 06/02/19 24 06/02/2023 URINA LYSIS COMPL ETE/I RIS W/RFX specific gravity 1.019 1.001- 1.030 Not Available Not Available 06/02/2023 19:52:50 06/02/19 24 06/02/2023 URINA LYSIS COMPL ETE/I RIS W/RFX pH 5.5 pH_un its 5.0-9. 0 Not Available Not Available 06/02/2023 19:52:50 06/02/19 24 06/02/2023 URINA LYSIS COMPL ETE/I RIS W/RFX leukocytes NEGATI VE oracio/u L negati ve- Not Available Not Available 06/02/2023 19:52:50 06/02/19 24 06/02/2023 URINA LYSIS COMPL ETE/I RIS W/RFX nitrite NEGATI VE negati ve- Not Available Not Available 06/02/2023 19:52:50 06/02/19 24 06/02/2023 URINA LYSIS COMPL ETE/I RIS W/RFX protein NEGATI VE mg/dL negati ve- Not Available Not Available 06/02/2023 19:52:50 06/02/19 24 06/02/2023 URINA LYSIS COMPL ETE/I RIS W/RFX glucose NORMAL mg/dL normal - Not Available Not Available 06/02/2023 19:52:50 06/02/19 24 06/02/2023 URINA LYSIS COMPL ETE/I RIS W/RFX ketones NEGATI VE mg/dL negati ve- Not Available Not Available 06/02/2023 19:52:50 06/02/19 24 06/02/2023 URINA LYSIS COMPL ETE/I RIS W/RFX urobilinogen NORMAL mg/dL normal - Not Available Not Available 06/02/2023 19:52:50 06/02/19 24 06/02/2023 URINA LYSIS COMPL ETE/I RIS W/RFX bilirubin NEGATI VE mg/dL negati ve- Not Available Not Available 06/02/2023 19:52:50 06/02/19 24 06/02/2023 URINA LYSIS COMPL ETE/I RIS W/RFX blood NEGATI VE mg/dL negati ve- Not Available Not Available 06/02/2023 19:52:50 06/02/19 24 06/02/2023 URINA LYSIS COMPL ETE/I RIS W/RFX white blood cells 0-8 /i??h pfi?? 0-8 Not Available Not Available 06/02/19 19:52:50 06/02/19 24 06/02/2023 URINA LYSIS COMPL ETE/I RIS W/RFX red blood cells 0-4 /i??h pfi?? 0-4 Not Available Not Available 06/02/19 19:52:50 06/02/19 24 06/02/2023 URINA LYSIS COMPL ETE/I RIS W/RFX bacteria NONE Not Available Not Avail able 06/02/2023 19:52:50 06/02/19 24 06/02/2023 URINA LYSIS COMPL ETE/I RIS W/RFX squamous epithelial FEW /i??l pfi?? abnormal Not Available Not Available 06/02/19 19:52:50 06/02/19 24 06/02/2023 HEMOG LOBIN A1C HA1C 8.7 % 4.0-6. 0 high Diabe vale Scree kee Crite dmitry: <5.7% Consi stent with absen ce of diabe vale 5.7-6 .4% Consi stent with incre ased risk for diabe vale (pred iabet es) >OR=6 .5% Consi stent with diabe vale REFER ENCE: Diabe vale Care 2016, 39([place]upe ppl.1 ):s13 -s22 Not Available Not Available 06/02/2023 20:34:02 06/02/19 24 06/02/2023 IRON/ TIBC PANEL total iron binding capacity 392 mcg/d L 265-47 5 Not Available [facility] (Lab) [address] [place], [address], 06/02/2023 21:05:43 06/02/19 24 06/02/2023 IRON/ TIBC PANEL % transferrin saturation 21 % 20-55 Not Available [facility] (Lab) [address] [place], [address], 06/02/2023 21:05:43 06/02/19 24 06/02/2023 IRON/ TIBC PANEL unsaturated iron bind capacity 309 mcg/d L 126-38 2 Not Available [facility] (Lab) [address] [place], [address], 06/02/2023 21:05:43 06/02/19 24 06/02/2023 IRON/ TIBC PANEL iron 83 mcg/d L 42-175 Not Available [facility] (Lab) [address] [place], [address], 06/02/2023 21:05:43 06/02/19 24 06/02/2023 LIPID PANEL cholesterol 134 mg/dL 140-19 9 low NIH RMAA NSUS RECOM MENDA TION FOR ANITHA STERO L: ADULT CHILD LOW RISK: <200 <170 BORDE RLINE : <200- 239 ----- HIGH RISK: >240 >200 Not Available [facility] (Lab) [address] [place], [address], 06/02/2023 21:05:08 06/02/19 24 06/02/2023 LIPID PANEL triglyceride s 184 mg/dL 0-150 high NIH RAMA NSUS REPOR T RECOM MENDA TION FOR TRIGL YCERI JACKSON: ADULT CHILD LOW RISK: <150 ----- BODER LINE: 150-1 99 ----- HIGH RISK: >200 ----- Not Available [facility] (Lab) [address] [place], [address], 06/02/2023 21:05:08 06/02/19 24 06/02/2023 LIPID PANEL HDL cholesterol 44 mg/dL 40- Not Available [facility] (Lab) [address] [place], [address], 06/02/2023 21:05:08 06/02/19 24 06/02/2023 LIPID PANEL LDL cholesterol, calculated 53 mg/dL 0-130 NIH RAMA NSUS REPOR T RECOM MENDA TIONS FOR LDL: ADULT CHILD LOW RISK <130 <110 (OPTI MAL LDL) <100 ----- CAREY RLINE : 130-1 59 ----- HIGH RISK: >160 >130 A TRIGL YCERI DE RESUL T >400 INVAL IDATE S THE CALCU LATIO N FOR LDL FRACT IONAT ION - THE LDL RESUL T WILL NOT BE REPOR HA. Not Available [facility] (Lab) [address] [place], [address], 06/02/2023 21:05:08 06/02/19 24 06/02/2023 HEPAT IC/LI SONIA PANEL alkaline phosphatase 82 U/L 38-126 Not Available [facility] (Lab) [address] [place], [address], 06/02/2023 21:05:13 06/02/19 24 06/02/2023 HEPAT IC/LI SONIA PANEL alanine aminotransfe rase 31 U/L 0-35 Not Available [facility] (Lab) [address] [place], [address], 06/02/2023 21:05:13 06/02/19 24 06/02/2023 HEPAT IC/LI SONIA PANEL aspartate aminotransfe rase 33 U/L 15-37 Not Available [facility] (Lab) [address] [place], [address], 06/02/2023 21:05:13 06/02/19 24 06/02/2023 HEPAT IC/LI SONIA PANEL bilirubin, total 0.50 mg/dL 0.20-1 .30 Not Available [facility] (Lab) [address] [place], [address], 06/02/2023 21:05:13 06/02/19 24 06/02/2023 HEPAT IC/LI SONIA PANEL bilirubin, conjugated (direct) 0.00 mg/dL 0.00-0 .30 Not Available [facility] (Lab) [address] [place], [address], 06/02/2023 21:05:13 06/02/19 24 06/02/2023 HEPAT IC/LI SONIA PANEL biliurubin,u ncong. (indirect) 0.20 mg/dL 0.00-1 .1 Not Available [facility] (Lab) [address] [place], [address], 06/02/2023 21:05:13 06/02/19 24 06/02/2023 HEPAT IC/LI SONIA PANEL total protein 7.2 g/dL 6.3-8. 2 Not Available [facility] (Lab) [address] [place], [address], 06/02/2023 21:05:13 06/02/19 24 06/02/2023 HEPAT IC/LI SONIA PANEL albumin 4.6 g/dL 3.0-4. 4 high Not Available [facility] (Lab) [address] [place], [address], 06/02/2023 21:05:13 06/02/19 24 06/02/2023 HEPAT IC/LI SONIA PANEL globulin 2.6 g/dL 2.6-4. 2 Not Available [facility] (Lab) [address] [place], [address], 06/02/2023 21:05:13 06/02/19 24 06/02/2023 HEPAT IC/LI SONIA PANEL A/G ratio 1.8 ratio 1.0-2. 0 Not Available [facility] (Lab) [address] [place], [address], 06/02/2023 21:05:13 06/02/19 24 06/02/2023 BASIC METAB OLIC PANEL sodium 141 mmol/ L 137-14 5 Not Available [facility] (Lab) [address] [place], [address], 06/02/2023 21:05:15 06/02/19 24 06/02/2023 BASIC METAB OLIC PANEL potassium 4.2 mmol/ L 3.5-5. 1 Not Available [facility] (Lab) [address] [place], [address], 06/02/2023 21:05:15 06/02/19 24 06/02/2023 BASIC METAB OLIC PANEL chloride 104 mmol/ L 98-107 Not Available [facility] (Lab) [address] [place], [address], 06/02/2023 21:05:15 06/02/19 24 06/02/2023 BASIC METAB OLIC PANEL carbon dioxide 25 mmol/ L 22-30 Not Available [facility] (Lab) [address] [place], [address], 06/02/2023 21:05:15 06/02/19 24 06/02/2023 BASIC METAB OLIC PANEL anion gap 16.2 mmol/ L 14-22 Not Available [facility] (Lab) [address] [place], [address], 06/02/2023 21:05:15 06/02/19 24 06/02/2023 BASIC METAB OLIC PANEL glucose 162 mg/dL 70-99 high Not Available [facility] (Lab) [address] [place], [address], 06/02/2023 21:05:15 06/02/19 24 06/02/2023 BASIC METAB OLIC PANEL BUN 15 mg/dL 8-19 Not Available [facility] (Lab) [address] [place], [address], 06/02/2023 21:05:15 06/02/19 24 06/02/2023 BASIC METAB OLIC PANEL creatinine 0.54 mg/dL 0.66-1 .25 low Not Available [facility] (Lab) [address] [place], [address], 06/02/2023 21:05:15 06/02/19 24 06/02/2023 BASIC METAB OLIC PANEL GFR >60 Refer ence Range : [place] ge GFR Healt hy Adult : >60 mL/mi n/1.7 3 m2 Chron ic Kidne y Disea se: 15-60 mL/mi n/1.7 3 m2 Kidne y Failu re: <15/m L/min /1.73 m2 www.n iddk. nih.g ov The MDRD study equat ion has not been valid ated in child shannan <18 years of age; pregn ant women ; the elder ly >85 years of age; or in some racia l or ethni c subgr oups, such as [facility] nics. Outsi de the valid ated chele eters , estim ated GFR is less accur ate, requi ring clini andre judgm ent on a case- by-ca se basis . Clini andre inter preta tion for other races and ages must be made by the clini jacoby. The MDRD study equat ion has not been valid ated for the evalu ation of serum creat inine relat ed to nutri miranda l statu s or medic ation usage . For perso ns <18 years of age, a pedia tric GFR calcu lator is avail able on the [facility] websi te: https ://kaci conley.kid vasyl.o rg/pr ofess ional s/kdo qi/gf r_cal culat or Not Available [facility] (Lab) [address] [place], [address], 06/02/2023 21:05:15 06/02/19 24 06/02/2023 BASIC METAB OLIC PANEL calcium 10.2 mg/dL 8.4-10 .2 Not Available [facility] (Lab) [address] [place], [address], 06/02/2023 21:05:15 06/02/19 24 06/02/2023 VITAM IN D 25-HY DROXY [id number] 58.0 NG/mL 30-100 Vitam in D Statu s: Defic ient: <20 ng/mL Insuf ficie nt: 20-29 ng/mL Suffi cient : 30-10 0 ng/mL Not Available [facility] (Lab) [address] [place], [address], 06/02/2023 21:21:55 06/02/19 24 06/02/2023 ROHAN TIN ferritin 17 NG/mL 11.1-2 64 Not Available [facility] (Lab) [address] [place], [address], 06/02/2023 21:33:09 06/02/19 24 06/02/2023 MICRO ALBUM IN RANDO M URINE microalbumin , urine <6.0 mg/L 0.0-16 .6 Not Available [facility] (Lab) [address] [place], [address], 06/02/2023 21:39:53 06/02/19 24 06/02/2023 VITAM IN B12 (VALE NELSON ) vb12 799 pg/mL 239-93 1 Not Available [facility] (Lab) [address] [place], [address], 06/02/2023 22:28:27 06/02/19 24 06/02/2023 FOLAT E, SERUM /PLAS MA folate 11.7 NG/mL 2.76-2 0.0 Not Available [facility] (Lab) [address], [place], [address], 06/02/2023 22:28:29 10/12/19 23 XR, hip + pelvi s, unila teral No observ ation record ed. [email or web address] [facility] [place] [address], [place], [address], 10/11/2022 11:59:25 Result Notes None recorded. Problems Name Problem SNOMED Code Status Onset Date Resolution Date Notes Provider Name and Address Organization Details Recorded Time Diabetes mellitus 32454440 Active 2022 Atilio Laughlin MD [address] [facility], [place] [address], [place], [address] , [employer] [facility] [employer] 3 12:14:06 Spasm 05018159 Active 2022 Atilio Laughlin MD [address] [facility], [place] [address], [place], [address] , [employer] 3 14:08:07 Cobalami n deficien cy 675146177 Active 2022 Atilio Laughlin MD [address] [facility], [place] [address], [place], [address] , [employer] [facility] [employer] [facility] 3 14:09:08 Vitamin D deficien cy 98015054 Active 2022 Atilio Laughlin MD [address] [address], [place], [address] , [employer] [facility] [employer] 3 14:09:17 Pain of right wrist 67754389542 9100 Active 2022 Atilio Laughlin MD [address] [facility], [place] [address], [place], [address] , [employer] [facility] [employer] [facility] 3 14:10:05 Pain of left hip joint 52214446063 9100 Active 2022 OMI Kaminski null, [facility] 3 11:03:15 Eruption 306490744 Active 2022 Atilio Laughlin MD [address], [facility] [address], [place], [address] , [facility] 3 14:06:35 Pain of left knee joint 70885736006 4107 Active 2022 Atilio Laughlin MD [address] [facility] [facility], [facility] [address], [place], [address] , [facility] 3 14:18:15 Dysuria 36917111 Active 2023 Atilio Laughlin MD [address], [place] [address], [place], [address] , [facility] 4 14:10:47 History of tissue/o rgan recipien t 234297524 Active 2016 blood transfus ion Not Available [facility] 3 04:36:37 Mammogra phy abnormal 030068461 Active Not Available [facility] 3 04:36:37 Osteoart hritis of hip 796250269 Active Not Available [facility] 3 04:36:37 Anemia 306215210 Active Not Available [facility] 3 04:36:37 Osteopen ia 887332139 Active 2018 DEXA 04/18 Not Available [facility] 3 04:36:37 Type 2 diabetes mellitus without complica tion 307230412 Active Not Available [facility] 3 04:36:37 Iron deficien cy 17343121 Active Not Available [facility] 3 04:36:37 Sinusiti s 01224573 Active Not Available [facility] 3 04:36:37 Osteoart hritis 157998553 Active 2016 Not Available [facility] 3 04:36:37 Coronary atherosc lerosis 275687506 Active Not Available [facility] 3 04:36:37 Posttrau matic stress disorder 65483350 Active 2016 Nightmar es Not Available [facility] 3 04:36:37 Tibialis tendinit is 96682557 Active Not Available [facility] 3 04:36:37 Hyperlip idemia 71831232 Active Not Available [facility] 3 04:36:37 Essentia l hyperten oniel 43019581 Completed Not Available [facility] 3 04:36:37 Urinary tract infectio us disease 64651009 Active Not Available [facility] 3 04:36:37 Kidney stone 32371350 Active 2019 Not Available [facility] 3 04:36:37 Problem Notes None recorded. Procedures Surgical History None recorded. Imaging Results Imaging Date Name Status LastModified by Organiz ation Details LastModified Time 10/11/2022 XR, hip + pelvis, unilateral completed [email or web address] [facility] [place] [address], [place], [address], 10/11/2022 11:59:25 Procedure Notes None recorded. Medical Equipment None Reported. Allergies Allergen ID Allergen Name Allergen Category Reaction Reaction Severity Criticality Documentation Date Start Date Code Code System Note Provider Name and Address Organization Details Recorded Time 6761 Substance with sulfonami de structure and antibacte rial mechanism of action (substanc e) medicatio n Not available Not available Not available 05/29/2022 97885 8003 SNOMED Not Available [facility] 3 04:45:06 6762 Product containin g penicilli n (product) medicatio n Not available Not available Not available 05/29/2022 18151 8001 SNOMED Not Available [facility] 3 04:45:06 6763 influenza virus vaccine, specific Not available rash Not available Not available 05/29/2022 44374 UNK Not Available [facility] 3 04:45:07 Medications Name Sig Start Date Stop Date Status Note LastModified by Organization Details LastModified Time cyclobenzap rine 10 mg tablet 07/02 completed Not Available Not Available Not Available OneTouch Ultra Control solution 07/02 completed Not Available Not Available Not Available azithromyci n 250 mg tablet TK 2 TS PO QD FOR 1 DAY THEN TK 1 T PO FOR 4 DAYS 03/06 completed Not Available Not Available Not Available aspirin 325 mg tablet Take 1 tablet every day by oral route. 07/02 completed Not Available Not Available Not Available glyburide 5 mg tablet 1 po qAM 03/03 completed Not Available Not Available Not Available fluconazole 150 mg tablet 1 po x 1 active Not Available Not Available Not Available benzonatate 200 mg capsule TAKE 1 CAPSULE BY MOUTH THREE TIMES DAILY NEEDED FOR COUGH 03/06 completed Not Available Not Available Not Available valacyclovi r 1 gram tablet Take 1 tablet every 12 hours by oral route for 7 days. active Not Available Not Available No t Available hydrocodone 5 mg-acetamin ophen 325 mg tablet 07/02 completed Not Available Not Available Not Available prazosin 1 mg capsule TK 1 C PO QHS active Not Available Not Available No t Available prednisone 20 mg tablet TAKE 2 TABLETS BY MOUTH EVERY DAY FOR 5 DAYS 06/01 completed Not Available Not Available Not Available ciprofloxac in 500 mg tablet Take 1 tablet every 12 hours by oral route. 09/21 completed Not Available Not Available Not Available peg-electro lyte solution 420 gram oral solution 10/31 completed Not Available Not Available Not Available tramadol 50 mg tablet Take 1 tablet every 6 hours by oral route. 07/02 completed Not Available Not Available Not Available triamcinolo ne acetonide 0.1 % topical cream APPLY THIN LAYER TOPICALLY TO THE AFFECTED AREA TWICE DAILY FOR 7 DAYS active Not Available Not Available No t Available oxycodone-a cetaminophe n 10 mg-325 mg tablet Take 1 tablet every 6 hours by oral route as needed. active Not Available Not Available No t Available ferrous sulfate 325 mg (65 mg iron) tablet TK 1 T PO BID. 08/20 completed Not Available Not Available Not Available metformin 1,000 mg tablet TAKE 1 TABLET BY MOUTH TWICE DAILY WITH THE MORNING AND EVENING MEAL active Not Available Not Available No t Available docusate sodium 100 mg capsule Take 1 capsule every day by oral route. 10/11 completed Not Available Not Available Not Available gabapentin 300 mg capsule TAKE 1 CAPSULE BY MOUTH TWICE DAILY active Not Available Not Available No t Available omeprazole 20 mg capsule,del ayed release TAKE 1 CAPSULE BY MOUTH EVERY DAY active Not Available Not Available No t Available lisinopril 5 mg tablet TAKE 1 TABLET BY MOUTH EVERY DAY active Not Available Not Available No t Available Levaquin 500 mg tablet Take 1 tablet every 24 hours by oral route for 10 days. 03/27 completed Not Available Not Available Not Available polyethylen e glycol 3350 17 gram/dose oral powder MIX 1 CAPFUL IN LIQUID AND DRINK DAILY DIRECTED 10/11 completed Not Available Not Available Not Available oxybutynin chloride 5 mg tablet 07/02 completed Not Available Not Available Not Available glipizide 5 mg tablet TAKE 1 TABLET BY MOUTH TWICE DAILY WITH FOOD 01/25 completed Not Available Not Available Not Available prazosin 2 mg capsule 1 po qhs active Not Available Not Available Not Available rosuvastati n 20 mg tablet TAKE 1 TABLET BY MOUTH EVERY NIGHT AT BEDTIME active Not Available Not Available No t Available nitrofurant oin monohydrate /macrocryst als 100 mg capsule TAKE 1 CAPSULE BY MOUTH EVERY 12 HOURS FOR 7 DAYS active Not Available Not Available No t Available Fish Oil 07/02 completed Not Available Not Available Not Available lutein 1 po qd 2023 active 25mg, by eye dr per pt Not Available Not Available Not Available Calcium 500 + D 07/02 completed Not Available Not Available Not Available OneTouch Ultra2 Meter kit 07/02 completed Not Available Not Available Not Available Januvia 100 mg tablet TAKE 1 TABLET BY MOUTH DAILY 05/21 completed Not Available Not Available Not Available Lantus Solostar U-100 Insulin 100 unit/mL (3 mL) subcutaneou s pen INJECT 28 UNITS UNDER THE SKIN EVERY NIGHT AT BEDTIME 2023 active Not Available Not Available Not Avai lable Prevnar 13 (PF) 0.5 mL intramuscul ar syringe ADM 0.5ML IM UTD 07/02 completed Not Available Not Available Not Available Halflytely- Bisacodyl w-Flavor Pack 5 mg-210 gram oral kit active Not Available Not Available Not Available OneTouch Verio test strips USE TO TEST TWICE DAILY DIRECTED active Not Available Not Available No t Available TRUEplus Lancets 28 gauge test tid active Not Available Not Available Not Available Fluvirin 9444-4222 45 mcg (15 mcg x 3)/0.5 mL intramuscul ar suspension INJECT 0.5 ML INTRAMUSC ULARLY DIRECTED. active Not Available Not Available No t Available Fluzone High-Dose (PF) 180 mcg/0.5 mL intramuscul ar syringe active Not Available Not Available N ot Available OneTouch Verio Flex Meter USE DIRECTED 07/02 completed Not Available Not Available Not Available Fluzone High-Dose (PF) 180 mcg/0.5 mL intramuscul ar syringe ADM 0.5ML IM UTD 07/02 completed Not Available Not Available Not Available OneTouch Ultra Blue Test Strip USE TO TEST ONCE DAILY DIRECTED 07/02 completed Not Available Not Available Not Available BD Hina 2nd Gen Pen Needle 32 gauge x /32 USE DIRECTED active Not Available Not Available No t Available OneTouch Delica Plus Lancet 30 gauge USE TO TEST BLOOD SUGAR TWICE DAILY 07/02 completed Not Available Not Available Not Available Vitals Date Recorded Body height Body mass index (BMI) Body weight Body temperature Heart rate Oxygen saturation Oxygen saturation in Arterial blood by Pulse oximetry Systolic blood pressure Diastolic blood pressure Provider Name and Address Organization Details Last Updated DateTime 3 149.86 cm 27.9 kg/m2 87848.7 5 g 97.8 [degF] 94 /min 94 % 94 % 128 mm[Hg] 74 mm[Hg] Hiro Teresa RN [facility] [employer] 3 14:05:38 Date Recorded Body height Body mass index (BMI) Body weight Provider Name and Address Organization Details Last Updated DateTime 10/11/2022 147.32 cm 30.1 kg/m2 67069.3 g OMI Kaminski [facility] [employer] 10/11/2022 11:38:53 Date Recorded Body height Body mass index (BMI) Body weight Body temperature Heart rate Oxygen saturation Oxygen saturation in Arterial blood by Pulse oximetry Systolic blood pressure Diastolic blood pressure Provider Name and Address Organization Details Last Updated DateTime 3 147.32 cm 29.9 kg/m2 69693.7 1 g 98.3 [degF] 92 /min 93 % 93 % 138 mm[Hg] 72 mm[Hg] Hiro Teresa RN [facility] [employer] [facility] 3 13:58:32 Date Recorded Body height Body mass index (BMI) Body weight Body temperature Heart rate Oxygen saturation Oxygen saturation in Arterial blood by Pulse oximetry Systolic blood pressure Diastolic blood pressure Provider Name and Address Organization Details Last Updated DateTime 3 147.32 cm 29.5 kg/m2 65819.5 2 g 98 [degF] 101 /min 93 % 93 % 142 mm[Hg] 78 mm[Hg] Hiro Teresa RN [facility] [employer] [facility] 3 13:59:47 Date Recorded Body height Body mass index (BMI) Body weight Body temperature Heart rate Oxygen saturation Oxygen saturation in Arterial blood by Pulse oximetry Systolic blood pressure Diastolic blood pressure Provider Name and Address Organization Details Last Updated DateTime 4 147.32 cm 29.5 kg/m2 12600.5 2 g 97.6 [degF] 87 /min 97 % 97 % 132 mm[Hg] 70 mm[Hg] Hiro Teresa RN [facility] [employer] [facility] 4 14:02:22 Social History Question Answer Notes LastModified by [employer] Details LastModified Time Tobacco Smoking Status Former Smoker Not Available [facility] 05/29/2022 04:19:14 What Is Your Level Of Alcohol Consumption? None [id number] Information not available 05/29/2022 Are You Blind Or Do You Have Difficulty Seeing? No [id number] Information not available 05/29/2022 What Is Your Level Of Caffeine Consumption? Occasional [id number] Information not available 05/29/2022 How Much Tobacco Do You Chew? None [id number] Information not available 05/29/2022 In The 14 Days Before Symptom Onset, Have You Had Close Contact With A Laboratory-confir med COVID-19 While That Case Was Ill? No [id number] Information not available 05/29/2022 In The 14 Days Before Symptom Onset, Have You Had Close Contact With A Person Who Is Under Investigation For COVID-19 While That Person Was Ill? No [id number] Information not available 05/29/2022 Are You Deaf Or Do You Have Serious Difficulty Hearing? No [id number] Information not available 05/29/2022 What Type Of Diet Are You Following? REGULAR [id number] Information not available 05/29/2022 Which Illicit Or Recreational Drugs Have You Used? None [id number] Information not available 05/29/2022 Do You Or Have You Ever Used E-cigarettes Or Vape? Never Used Electronic Cigarettes [id number].[id number] Information not available 05/29/2022 What Is Your Occupation? Retired MIGRATION.[id number] 5479 Information not available 05/29/2022 What Was The Date Of Your Most Recent Tobacco Screening? 07/27/2020 [id number] Information not available 05/29/2022 Do You Or Have You Ever Used Smokeless Tobacco? Never Used Smokeless Tobacco [id number].[id number] 1589 Information not available 05/29/2022 Sex: Unknown Functional Status Question Answer Note LastModified by Organizat ion Details LastModified Time Do you have difficulty walking or climbing stairs? No [id number] 26 Information not available 05/29/2022 Do you have difficulty doing errands alone? No [id number] 26 Information not available 05/29/2022 Are you able to care for yourself? Yes [id number].[id number] 26 Information not available 05/29/2022 Do you have difficulty dressing or bathing? No [id number] 26 Information not available 05/29/2022 What is your exercise level? Moderate [id number].[id number] 26 Information not available 05/29/2022 Mental Status Question Answer Note LastModified by Organizat ion Details LastModified Time Do you have difficulty concentrating, remembering or making decisions? No [id number].[id number] 6 Information not available 05/29/2022 Family History Relationship Description Onset Age of this Age Resolved Age Notes LastModified by Organization Details LastModified Time Father Family history of stroke [id number] Not available 05/29/2022 04:31:02 Brother Heart disease [id number] Not available 05/29/2022 04:31:02 Brother History of emphysema MIGRATION.243 [id number] Not available 05/29/2022 04:31:02 Sister Heart disease [id number] Not available 05/29/2022 04:31:02 Sister Langerhans cell histiocytosi s MIGRATION.253 [id number] Not available 05/29/2022 04:31:02 Mother History of emphysema MIGRATION.672 [id number] Not available 05/29/2022 04:31:02 Mother Blood coagulation disorder hemach romato sis MIGRATION.089 [id number] Not available 05/29/2022 04:31:02 Mother Pulmonary embolism MIGRATION.146 [id number] Not available 05/29/2022 04:31:02 Medical History Condition Response ARTHRITIS Y DIABETES, TYPE Y Gynecological HistoryNo gynecological history recorded. Obstetrics History GPAL:G 0 P 0 0 0 0 Immunizations Vaccine Type Date Status Note Provider Nam e and Address Organization Details Recorded Time Influenza, high-dose, trivalent, PF 5 completed Not Available [facility] 05/29/2022 04:44:47 Influenza, high-dose, trivalent, PF 3 completed Not Available [facility] 05/29/2022 04:44:47 pneumococcal polysaccharide PPV23 3 completed Not Available [facility] 05/29/2022 04:44:47 Influenza, high-dose, trivalent, PF 7 completed Not Available [facility] 05/29/2022 04:44:47 pneumococcal polysaccharide PPV23 7 completed Not Available [facility] 05/29/2022 04:44:48 Influenza, high-dose, trivalent, PF 6 completed Not Available [facility] 05/29/2022 04:44:48 Pneumococcal conjugate PCV 13 6 completed Not Available [facility] 05/29/2022 04:44:48 Past Encounters Encounter ID Performer Location Encounter Start Date Encounter Closed Date Diagnosis/Indication Diagnosis SNOMED-CT Code Diagnosis ICD10 Code Diagnosis Note [id number] [facility] [place] [address] [place] [address] 07/27/2020 00:00:00 07/28/2020 10:25:43 [id number] [facility] [place] [address] [facility] [address] [place] [address] 10/26/2020 00:00:00 10/26/2020 16:15:05 [id number] [facility] [place] [address] [facility] [address] [place] [address] 01/25/2021 00:00:00 01/25/2021 15:16:11 [id number] [facility] [place] [address] [place] [address] 03/06/2021 00:00:00 03/06/2021 10:19:40 [id number] [facility] [place] [address] [place] [address] 04/10/2021 00:00:00 04/10/2021 09:44:37 [id number] [facility] [place] [address] [place] [address] 05/08/2021 00:00:00 05/08/2021 14:52:10 [id number] [facility] [place] [address] [place] [address] 06/05/2021 00:00:00 06/05/2021 15:09:36 [id number] [facility] [place] [address] [place] [address] 07/04/2021 00:00:00 07/04/2021 15:02:14 [id number] [facility] [place] [address] [place] [address] 09/03/2021 00:00:00 09/03/2021 15:04:31 [id number] [facility] [place] [address] [place] [address] 10/09/2021 00:00:00 10/09/2021 13:01:25 [id number] [facility] [place] [address] [place] [address] 05/21/2022 00:00:00 05/27/2022 16:23:43 [id number] Atilio Laughlin MD [facility] [place] [address] [place] [address] 06/04/2022 16:22:21 06/04/2022 16:55:47 Diabetes mellitus 23933874 E11.9 improving but not to goalincrea se lantus to 22 units qdayf/u by portal in 1 week with home blood sugar readings [id number] Atilio Laughlin MD [facility] Primary Care [address] [place] [address] 07/16/2022 13:52:43 07/16/2022 14:21:39 Type 2 diabetes mellitus without complication 236889347 E11.9 Spasm 58911739 R25.2 Iron deficiency 99403436 E61.1 Cobalamin deficiency 190 530560 E53.8 Vitamin D deficiency 347 06496 E55.9 Hyperlipidemia 61192724 E78.5 Z79.899 Pain of right wrist 3169 411032 47633 M25.531 [id number] Atilio Laughlin MD [facility] Primary Care [address] [place] [address] 09/03/2022 14:00:08 09/03/2022 14:20:00 Type 2 diabetes mellitus without complication 888915198 E11.9 home blood sugar is excellent on lantus 25 mg dailyf/u in 3 months [id number] MATTHEW Mack [facility] [place] [address] [place] [address] 10/11/2022 10:49:16 10/11/2022 14:08:49 Pain of left hip joint 0215210498 15182 M25.879 [id number] Atilio Laughlin MD [facility] Primary [facility] [address] [place] [address] [address] [place] [address] 12/03/2022 13:51:50 12/03/2022 16:26:24 Type 2 diabetes mellitus without complication 249821116 E11.9 home blood sugar is up a bit on lantus 25 mg dailycheck labs and adjust if neededf/u in 3 months Spasm 54808208 R25.2 Iron deficiency 49509181 E61.1 Cobalamin deficiency 190 170196 E53.8 Vitamin D deficiency 347 61860 E55.9 Hyperlipidemia 15664520 E78.5 Z79.899 Eruption 620674313 R21 [id number] Atilio Laughlin MD [facility] Primary Care [place] [address] [facility] [address] [place] [address] 03/05/2023 13:54:16 03/05/2023 14:22:49 Type 2 diabetes mellitus without complication 412664894 E11.9 much improvedco ntinue on lantus 28 mg dailyf/u in 6 weeks and recheck labs at that time Pain of le ft knee joint 4841761741 21547 M25.562 continue supportive caref/u in 6 weeks if no improvemen t or sooner if needed [id number] Atilio Laughlin MD [facility] Primary Care [place] [address] [facility] [address] [place] [address] 06/02/2023 13:55:32 06/02/2023 14:45:47 Cobalamin deficiency 749907125 E53.8 currently on otc b12 1000 mcg daily Anemia 406578748 D64.9 check labs Hyperlipidemia 60303601 E78.5 Z79.899 Iron deficiency 92161754 E61.1 Vitamin D deficiency 347 65112 E55.9 Type 2 akshat betes mellitus without complication 153547220 E11.9 much improvedco ntinue on lantus 28 mg dailyf/u in 6 weeks and recheck labs at that time update 06/02/23: doing wellhad eye exam 4che k labson brandy and statin Dysuria 00022504 R30.0 check UAnitrofur antoin 100 mg po bid x 7 days Health Concerns Section Related Observation LastModified by Organization Detai ls LastModified Time None Recorded Concern Status LastModified by Organization Details LastModified Time None Recorded Advance Directives Directive None Recorded Payers Encounter Date Sequence Insurance Name Policy Number Policy Hernandez Covered Member ID Hernandez Member ID Guarantor Name 09/03/2022 1 [facility] (MEDICARE REPLACEMENT/A DVANTAGE - HMO) [id number] [id number] [place] 10/11/2022 1 [facility] (MEDICARE REPLACEMENT/A DVANTAGE - HMO) [id number] [id number] [place] 12/03/2022 1 [facility] (MEDICARE REPLACEMENT/A DVANTAGE - HMO) [id number] Vivian [id number] Jewell Derik Vivian 03/05/2023 1 [facility] (MEDICARE REPLACEMENT/A DVANTAGE - HMO) [id number] [address] Vivian [id number] Jewell Derik Vivian 06/02/2023 1 [facility] (MEDICARE REPLACEMENT/A DVANTAGE - HMO) [id number] [address] Vivian [id number] [place] Notes Date Note Type Note Provider Name and Address Organization Details Recorded Time 09/03/2022 text/html currently on lantus 22 units AM 150-180 fasting and selling house, eating out and being stressed. having tere horses in legs right wrist is still painful and she wears a splint, she does not have time to see ortho now update 09/03/22: Has appt with Dr. Chang next month and will talk about right wrist at that appt. She is taking lantus 25 units and her AM fasting blood sugar is 160 or less. No chest pain, no sob. Atilio Laughlin MD [address], [place] [address], [place], [address], [facility] [employer] 09/27/2022 08:17:28 12/03/2022 text/html currently on lantus 22 units AM 150-180 fasting and selling house, eating out and being stressed. having tere horses in legs right wrist is still painful and she wears a splint, she does not have time to see ortho now update 09/03/22: Has appt with Dr. Chang next month and will talk about right wrist at that appt. She is taking lantus 25 units and her AM fasting blood sugar is 160 or less. No chest pain, no sob. update 12/03/22: home blood sugars are running AM fasting are 190s. She is taking lantus 25 units. No chest pain, no sob. Itchy patch of skin on right upper arm Atilio Laughlin MD [address], [address], [place], [address], [place] [facility] [employer] 12/03/2022 14:08:29 03/05/2023 text/html currently on lantus 22 units AM 150-180 fasting and selling house, eating out and being stressed. having tere horses in legs right wrist is still painful and she wears a splint, she does not have time to see ortho now update 09/03/22: Has appt with Dr. Chang next month and will talk about right wrist at that appt. She is taking lantus 25 units and her AM fasting blood sugar is 160 or less. No chest pain, no sob. update 12/03/22: home blood sugars are running AM fasting are 190s. She is taking lantus 25 units. No chest pain, no sob. Itchy patch of skin on right upper arm update 03/05/23: home blood sugars are running AM fasting 120s-160s. She is taking lantus 28 units daily. Recently moved and less stressed. Did twist knee on right side which caused bruising. She is elevating, icing, and taking aleve. Atilio Laughlin MD [address] [place] [address], [phone], [facility] [employer] 03/05/2023 14:22:36 06/02/2023 text/html currently on lantus 22 units AM 150-180 fasting and selling house, eating out and being stressed. having tere horses in legs right wrist is still painful and she wears a splint, she does not have time to see ortho now update 09/03/22: Has appt with Dr. Chang next month and will talk about right wrist at that appt. She is taking lantus 25 units and her AM fasting blood sugar is 160 or less. No chest pain, no sob. update 12/03/22: home blood sugars are running AM fasting are 190s. She is taking lantus 25 units. No chest pain, no sob. Itchy patch of skin on right upper arm update 03/05/23: home blood sugars are running AM fasting 120s-160s. She is taking lantus 28 units daily. Recently moved and less stressed. Did twist knee on right side which caused bruising. She is elevating, icing, and taking aleve. update 06/02/23: has had some recent stressors in her family and blood sugars were up a bit. She restarted b12 1000 mcg daily and is noticing her blood sugars are improved. She is having some burning with urination and urinary frequency. Home blood sugars are 150s-160s most of the time for the past few weeks. Atilio Laughlin MD [address] [facility] [address], [place], [address], [facility] [employer] [facility] 06/02/2023 14:22:48 OBGyn Episode No OBEpisode recorded.
[2024-07-26 19:46] LABS: Hemoglobin A1C 7.4 % (<5.7)
== END 2024-07-26 12:35 | disposition home or self-care (01) ==
LOC: ANHGOSHLAB 12:36
PROVIDERS: PCP Internal Medicine; Visit Provider Internal Medicine
DX: E11.9 Type 2 diabetes mellitus without complications (principal)
CPT/HCPCS: 36415; 83036

== ENCOUNTER 2025-02-07 08:22 | Outpatient (CLI) | payer MEDICARE, SELFPAY ==
[2025-02-07 12:52] LABS: Hematocrit 43.4 % (37.0-47.0); Hemoglobin 13.5 g/dL (12.0-15.0); Immature Granulocyte Percent A 0.2 % (0-0.5); Lymphocytes Absolute Auto 2.64 K/mm3 (0.9-3.2); Mean Corpuscular HGB Conc 31.1 g/dl (32-36); Mean Corpuscular Hemoglobin 26.4 pg (26-34); Mean Corpuscular Volume 84.9 fl (80-100); Nucleated Red Blood Cells Absolute Auto 0.000 K/mm3 (0.0-0.012); Nucleated Red Blood Cells Perc 0.0 % (0.0-0.2); Platelet Count Result 222 k/mm3 (150-375); Red Blood Count 5.11 M/mm3 (4.2-5.4); White Blood Count 6.4 K/mm3 (4.5-10.0)
[2025-02-07 13:06] LABS: Alanine Aminotransferase 22 U/L (6-35); Albumin Level 4.6 g/dL (3.5-5.1); Alkaline Phosphatase 69 U/L (38-126); Anion Gap 10 mmol/L (4-12); Aspartate Amino Transferase 41 U/L (14-36); Bilirubin,Total 0.5 mg/dL (0.2-1.3); Blood Urea Nitrogen 13 mg/dL (7-17); Calcium 10.0 mg/dL (8.4-10.2); Carbon Dioxide 27 mmol/L (22-30); Chloride 101 mmol/L (98-107); Cholesterol 129 mg/dL (0-200); Estimated Glomerular Filt Rate > 60; Glucose 173 mg/dL (65-110); HDL Direct 47 mg/dL; Hemoglobin A1C 7.5 % (<5.7); Potassium 4.4 mmol/L (3.4-5.0); Sodium 138 mmol/L (137-145); Total Protein 7.7 g/dL (6.3-8.2); Triglycerides 102 mg/dL (<150)
[2025-02-07 13:29] LABS: MALB Creatinine Ratio 12.1 mg/g (0-30)
[2025-02-07 14:22] LABS: Vitamin B12 > 1000.0 pg/mL (239-931)
== END 2025-02-07 08:23 | disposition home or self-care (01) ==
LOC: ANHGOSHLAB 08:23
PROVIDERS: PCP Internal Medicine; Visit Provider Internal Medicine
DX: I25.10 Atherosclerotic heart disease of native coronary artery without angina pectoris (principal); E78.2 Mixed hyperlipidemia; E11.69 Type 2 diabetes mellitus with other specified complication; E55.9 Vitamin D deficiency, unspecified; E53.8 Deficiency of other specified B group vitamins; Z79.4 Long term (current) use of insulin
CPT/HCPCS: 36415; 80053; 80061; 82043; 82172; 82306; 82607; 82746; 83036; 85025